=== PATIENT | female | born 1945 | race Caucasian/White ===

== ENCOUNTER → 2017-04-22 | Outpatient (CLI) | payer MEDICARE ==
[~2017-04-22] MED LIST: Bactrim Ds Tab1 EACH PO; DILT30 PO; ESOM20 PO; MULVITMIND PO; Prilosec Otc20 MG
== END | disposition home or self-care (01) ==
LOC: LAB EV 09:37
DX: N30.01 Acute cystitis with hematuria (principal)
CPT/HCPCS: 87086

== ENCOUNTER → 2017-04-30 | Outpatient (CLI) | payer MEDICARE | END | disposition home or self-care (01) | LOC: LAB EV 10:32 | DX: N39.0 Urinary tract infection, site not specified (principal) | CPT/HCPCS: 87077; 87086; 87186 ==

== ENCOUNTER → 2017-11-01 | Outpatient (CLI) | payer BC, MEDICARE | LOC: LAB SHORT 12:10 → LAB EV 12:10 | DX: N39.0 Urinary tract infection, site not specified (principal) | CPT/HCPCS: 87077; 87086; 87186 ==

== ENCOUNTER 2018-07-31 11:57 | Emergency (ER) | payer BC, MEDICARE ==
[~2018-07-31] VITALS: Ht 167.6 cm; Wt 77.1 kg
[2018-07-31 13:34] LABS: BASOPHILS ABSOLUTE AUTO 0.02 K/mm3 (0.00-0.23); BASOPHILS PERCENT AUTO 0 % (0-2); EOSINOPHILS ABSOLUTE AUTO 0.44 K/mm3 (0.00-0.68); EOSINOPHILS PERCENT AUTO 3 % (0-6); Hematocrit 44.5 % (33.0-51.0); Hemoglobin 14.6 g/dL (11.5-16.0); IMMATURE GRAN ABSOLUTE AUTO 0.09 K/mm3 (0.00-0.10); IMMATURE GRAN PERCENT AUTO 1 % (0-1); LYMPHOCYTES ABSOLUTE AUTO 1.63 K/mm3 (0.84-5.20); LYMPHOCYTES PERCENT AUTO 13 % (21-46); MONOCYTES ABSOLUTE AUTO 0.73 K/mm3 (0.16-1.47); MONOCYTES PERCENT AUTO 6 % (4-13); Mean Corpuscular HGB 29.1 pg (26.0-34.0); Mean Corpuscular HGB Conc 32.8 g/dL (31.5-36.5); Mean Corpuscular Volume 89 fL (80-100); Mean Platelet Volume 9.8 fL (9.1-12.4); NEUTROPHILS ABSOLUTE AUTO 10.01 K/mm3 (1.96-9.15); NEUTROPHILS PERCENT AUTO 77 % (41-73); Platelet Count 241 K/mm3 (150-400); RDW Coefficient Variation 12.7 % (11.7-14.2); RDW Standard Deviation 41.5 fL (35.1-46.3); Red Blood Cell Count 5.01 M/mm3 (3.80-5.20); White Blood Cell Count 12.92 K/mm3 (4.00-11.30)
[2018-07-31 13:39] LABS: Alanine Aminotransfer (ALT/SGP 31 U/L (12-78); Albumin, Blood 3.6 g/dL (3.4-5.0); Albumin/Globulin Ratio 1.1 (0.8-1.8); Alk Phos 96 U/L (50-136); Anion Gap 7 mmol/L (6-16); Aspartate Aminotrans (AST/SGOT 19 U/L (12-37); Bilirubin, Total 0.6 mg/dL (0.1-1.0); Blood Urea Nitrogen 19 mg/dL (8-24); Bun/Creatinine Ratio 15.3 (12.0-20.0); CO2, Blood 27 mmol/L (21-32); Calcium, Blood 9.5 mg/dL (8.5-10.1); Chloride, Blood 109 mmol/L (98-108); Creatinine, Blood 1.24 mg/dL (0.40-1.00); Globulin, Blood 3.2 g/dL (2.2-4.0); Glomerular Filtration Rate 45 (60-); Glucose, Blood 106 mg/dL (70-99); Potassium, Blood 4.2 mmol/L (3.5-5.5); Sodium, Blood 143 mmol/L (136-145); Total Protein, Blood 6.8 g/dL (6.4-8.2); Troponin I <0.015 ng/mL (0.000-0.040)
== END 2018-07-31 17:23 | disposition home or self-care (01) ==
LOC: ER 11:57
PROVIDERS: Emergency Medicine
DX: E86.0 Dehydration (principal); R55 Syncope and collapse; Z88.1 Allergy status to other antibiotic agents; Z79.899 Other long term (current) drug therapy; K21.9 Gastro-esophageal reflux disease without esophagitis; I10 Essential (primary) hypertension; Z87.891 Personal history of nicotine dependence
CPT/HCPCS: 36415; 71046; 80053; 83880; 84484; 85025; 93005; 93010; 96360; 99284-25; J7120

== ENCOUNTER → 2018-08-08 | Outpatient (CLI) | payer BC, MEDICARE ==
[2018-08-08 13:46] LABS: BASOPHILS ABSOLUTE AUTO 0.03 K/mm3 (0.00-0.23); BASOPHILS PERCENT AUTO 0 % (0-2); EOSINOPHILS ABSOLUTE AUTO 0.74 K/mm3 (0.00-0.68); EOSINOPHILS PERCENT AUTO 7 % (0-6); Hematocrit 43.6 % (33.0-51.0); IMMATURE GRAN ABSOLUTE AUTO 0.05 K/mm3 (0.00-0.10); IMMATURE GRAN PERCENT AUTO 1 % (0-1); LYMPHOCYTES ABSOLUTE AUTO 2.63 K/mm3 (0.84-5.20); LYMPHOCYTES PERCENT AUTO 24 % (21-46); MONOCYTES ABSOLUTE AUTO 0.61 K/mm3 (0.16-1.47); MONOCYTES PERCENT AUTO 6 % (4-13); Mean Corpuscular HGB 29.5 pg (26.0-34.0); Mean Corpuscular HGB Conc 34.4 g/dL (31.5-36.5); Mean Platelet Volume 9.8 fL (9.1-12.4); NEUTROPHILS ABSOLUTE AUTO 7.04 K/mm3 (1.96-9.15); NEUTROPHILS PERCENT AUTO 63 % (41-73); Platelet Count 246 K/mm3 (150-400); RDW Coefficient Variation 12.7 % (11.7-14.2); RDW Standard Deviation 39.8 fL (35.1-46.3); Red Blood Cell Count 5.09 M/mm3 (3.80-5.20)
[2018-08-08 13:49] LABS: Mean Corpuscular Volume 86 fL (80-100)
[2018-08-08 14:02] LABS: Alanine Aminotransfer (ALT/SGP 26 U/L (12-78); Albumin, Blood 3.8 g/dL (3.4-5.0); Albumin/Globulin Ratio 1.2 (0.8-1.8); Alk Phos 100 U/L (40-126); Anion Gap 7 mmol/L (6-16); Aspartate Aminotrans (AST/SGOT 17 U/L (12-37); Bilirubin, Total 0.6 mg/dL (0.1-1.0); Blood Urea Nitrogen 14 mg/dL (8-24); CO2, Blood 29 mmol/L (21-32); Calcium, Blood 9.8 mg/dL (8.5-10.1); Chloride, Blood 106 mmol/L (98-108); Globulin, Blood 3.3 g/dL (2.2-4.0); Glomerular Filtration Rate 37 (60-); Glucose, Blood 94 mg/dL (70-99); Potassium, Blood 4.1 mmol/L (3.5-5.5); Sodium, Blood 142 mmol/L (136-145); Total Protein, Blood 7.1 g/dL (6.4-8.2)
[2018-08-08 14:04] LABS: Troponin I <0.017 ng/mL (0.000-0.040)
== END | disposition home or self-care (01) ==
LOC: LAB SHORT 13:39 → LAB EV 13:39
PROVIDERS: Physician Assistant
DX: M79.601 Pain in right arm (principal); N39.0 Urinary tract infection, site not specified
CPT/HCPCS: 80053; 83690; 84484; 85025; 87077; 87086; 87186

== ENCOUNTER 2021-08-09 22:31 | Inpatient (IN) | payer BC, MEDICARE ==
[~2021-08-09] VITALS: Ht 175.3 cm; Wt 99.8 kg
[~2021-08-09 22:31] MED LIST changes: +Aspir 8181 MG PO; +FAMO10 PO; +MULTIVITAMINS1 EAC3 PO; +ZYRTEC10 M2 PO
[2021-08-09 23:01] LABS: BASOPHILS ABSOLUTE AUTO 0.02 K/mm3 (0.00-0.23); BASOPHILS PERCENT AUTO 0 % (0-2); EOSINOPHILS ABSOLUTE AUTO 0.04 K/mm3 (0.00-0.68); EOSINOPHILS PERCENT AUTO 0 % (0-6); Hematocrit 42.5 % (33.0-51.0); Hemoglobin 14.8 g/dL (11.5-16.0); IMMATURE GRAN ABSOLUTE AUTO 0.05 K/mm3 (0.00-0.10); IMMATURE GRAN PERCENT AUTO 0 % (0-1); LYMPHOCYTES ABSOLUTE AUTO 1.76 K/mm3 (0.84-5.20); LYMPHOCYTES PERCENT AUTO 10 % (21-46); MONOCYTES ABSOLUTE AUTO 0.95 K/mm3 (0.16-1.47); MONOCYTES PERCENT AUTO 5 % (4-13); Mean Corpuscular HGB 30.1 pg (26.0-34.0); Mean Corpuscular HGB Conc 34.8 g/dL (31.5-36.5); Mean Corpuscular Volume 87 fL (80-100); Mean Platelet Volume 9.6 fL (9.1-12.4); NEUTROPHILS PERCENT AUTO 84 % (41-73); Platelet Count 259 K/mm3 (150-400); RDW Standard Deviation 38.4 fL (35.1-46.3); Red Blood Cell Count 4.91 M/mm3 (3.80-5.20); White Blood Cell Count 17.62 K/mm3 (4.00-11.30)
[2021-08-09 23:20] LABS: Albumin, Blood 3.7 g/dL (3.4-5.0); Albumin/Globulin Ratio 1.1 (0.8-1.8); Bun/Creatinine Ratio 14.2 (12.0-20.0); Calcium, Blood 9.6 mg/dL (8.5-10.1); Creatinine, Blood 1.13 mg/dL (0.40-1.00); Globulin, Blood 3.5 g/dL (2.2-4.0); Potassium, Blood 4.5 mmol/L (3.5-5.5); Total Protein, Blood 7.2 g/dL (6.4-8.2)
[2021-08-10 00:57] LABS: Source, Urine Clean Catch
[2021-08-10 01:02] LABS: Bilirubin, Urine Neg (Neg); Blood, Urine Neg (Neg); Glucose Qualitative, Urine Neg (Neg); Ketones, Urine Neg (Neg); Leukocyte Esterase, Urine Neg (Neg); Nitrite, Urine Neg (Neg); Protein, Urine Neg (Neg); Urobilinogen, Urine NORM (Normal)
[2021-08-10 01:04] LABS: Appearance, Urine Clear (Clear); Color, Urine Yellow (P-Yellow)
--- NOTE | 2021-08-10 05:21 | NUR ---
PATIENT RECEIVED FROM ED IN STABLE CONDITION. SKIN INSPECTION REVEALS NO ACUTE SKIN ISSUES. pATIENT ABLE TO AMBULATE FROM THE STRETCHER TO THE BED INDEPENDENTLY. PATIENT UNDERSTANDS CLEAR LIQUID DIET. MINIMAL C/O LLQ PAIN, NO NAUSEA AT THIS TIME.
[2021-08-10 08:42] LABS: BASOPHILS ABSOLUTE AUTO 0.03 K/mm3 (0.00-0.23); BASOPHILS PERCENT AUTO 0 % (0-2); EOSINOPHILS ABSOLUTE AUTO 0.01 K/mm3 (0.00-0.68); EOSINOPHILS PERCENT AUTO 0 % (0-6); Hematocrit 42.9 % (33.0-51.0); Hemoglobin 14.3 g/dL (11.5-16.0); IMMATURE GRAN ABSOLUTE AUTO 0.09 K/mm3 (0.00-0.10); IMMATURE GRAN PERCENT AUTO 1 % (0-1); LYMPHOCYTES ABSOLUTE AUTO 1.83 K/mm3 (0.84-5.20); LYMPHOCYTES PERCENT AUTO 11 % (21-46); MONOCYTES ABSOLUTE AUTO 1.53 K/mm3 (0.16-1.47); MONOCYTES PERCENT AUTO 9 % (4-13); Mean Corpuscular HGB 29.9 pg (26.0-34.0); Mean Corpuscular HGB Conc 33.3 g/dL (31.5-36.5); Mean Corpuscular Volume 90 fL (80-100); Mean Platelet Volume 9.8 fL (9.1-12.4); NEUTROPHILS ABSOLUTE AUTO 13.76 K/mm3 (1.96-9.15); NEUTROPHILS PERCENT AUTO 80 % (41-73); Platelet Count 232 K/mm3 (150-400); RDW Standard Deviation 39.4 fL (35.1-46.3); Red Blood Cell Count 4.79 M/mm3 (3.80-5.20); White Blood Cell Count 17.25 K/mm3 (4.00-11.30)
[2021-08-10 08:55] LABS: Albumin/Globulin Ratio 0.9 (0.8-1.8); Bilirubin, Total 1.8 mg/dL (0.1-1.0); Bun/Creatinine Ratio 13.5 (12.0-20.0); Calcium, Blood 8.6 mg/dL (8.5-10.1); Creatinine, Blood 1.11 mg/dL (0.40-1.00); Globulin, Blood 3.4 g/dL (2.2-4.0); Potassium, Blood 3.9 mmol/L (3.5-5.5); Total Protein, Blood 6.4 g/dL (6.4-8.2)
--- NOTE | 2021-08-10 19:56 | NUR ---
SHIFT SUMMARY- PT ALERT AND ORIENTED, INDEPENDENT IN THE ROOM. IV IS POSITIONAL. PT HAS SLEPT FREQUENTLY T/O THE SHIFT. PT STATES SHE HAS SOME DISCOMFOT IN HER ABDOMEN, BUT DOES NOT REQUEST PAIN MEDICATION. BEDSIDE REPORT COMPLETED WITH NIGHT RN PT IN BED, CALL LIGHT IN REACH NO S&S OF DISTRESS NOTED.
--- NOTE | 2021-08-11 04:27 | NUR ---
SHIFT SUMMARY: PATIENT REMAINS A/OX4, ADLIB IN ROOM. SLIGHT INCREASED SHORTNESS OF BREATH AND LETHARGY POST MOBILIZATION IN ROOM. NO COMPLAINTS OF SIGNIFICANT PAIN, SLIGHT GI DISCOMFORT AND TENDERNESS TO THE TOUCH- PATIENT DECLINES PAIN MEDICATION INTERVENTIONS DUE TO BEING TOLERABLE. PATIENT REPORTS FEELING SIGNIFICANTLY BETTER COMPARED TO WHEN FIRST BEING ADMITTED.
[2021-08-11 05:39] LABS: Hematocrit 42.2 % (33.0-51.0); Mean Corpuscular HGB 29.8 pg (26.0-34.0); Mean Corpuscular HGB Conc 33.2 g/dL (31.5-36.5); Mean Corpuscular Volume 90 fL (80-100); Mean Platelet Volume 9.9 fL (9.1-12.4); Platelet Count 200 K/mm3 (150-400); RDW Standard Deviation 39.3 fL (35.1-46.3); White Blood Cell Count 17.82 K/mm3 (4.00-11.30)
[2021-08-11 05:58] LABS: Calcium, Blood 8.8 mg/dL (8.5-10.1); Creatinine, Blood 1.08 mg/dL (0.40-1.00); Potassium, Blood 3.5 mmol/L (3.5-5.5)
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
--- NOTE | 2021-08-11 20:04 | NUR ---
SHIFT SUMMARY- PT ALERT, ORIENTED AND INDEPEDENT IN THE ROOM. PT CURRENTLY INFUSING IV ABX THEN IV WILL BE SL. PT HAS HAD NO ACUTE CHANGES T/O THE SHIFT. BEDSIDE REPORT COMPLETED WITH NIGHT RN. PT HAS HAD SEVERAL BM'S AND STATES SHE IS FEELING MUCH BETTER NOW THAT SHE HAS POOPED. PPT IN BED, CALL LIGHT IN REACH NO S&S OF DISTRESS.
--- NOTE | 2021-08-12 04:04 | NUR ---
PATIENT WITH VSS ON RA OVERNIGHT. 1 EPISODE OF INCONTINENT DIARRHEA OVERNIGHT. ABDOMEN DISTENDED WITH MINIMAL BS. PATIENT C/O SOB WHEN UP MOVING AROUND, FEW EXPIRATORY WHEEZES NOTED. O2 SATS REMAIN STABLE. UP INDEPENDENTLY IN THE ROOM. NO ACUTE EVENTS OVERNIGHT.
[2021-08-12 09:14] LABS: Hematocrit 42.2 % (33.0-51.0); Hemoglobin 14.3 g/dL (11.5-16.0); Mean Corpuscular HGB 29.6 pg (26.0-34.0); Mean Corpuscular HGB Conc 33.9 g/dL (31.5-36.5); Mean Corpuscular Volume 87 fL (80-100); Mean Platelet Volume 9.7 fL (9.1-12.4); Platelet Count 220 K/mm3 (150-400); RDW Coefficient Variation 11.9 % (11.7-14.2); RDW Standard Deviation 38.2 fL (35.1-46.3); Red Blood Cell Count 4.83 M/mm3 (3.80-5.20); White Blood Cell Count 12.33 K/mm3 (4.00-11.30)
[2021-08-12] MEDS ORDERED: MIRALAX17 GM PO (11:16)
[2021-08-12] MEDS ORDERED: VISBIOME 112.51 EACH PO ×2 (11:17→11:54)
[2021-08-12] MEDS ORDERED: MULTIVITAMIN PO (11:54)
[2021-08-12] MEDS ORDERED: AMOCLA875 PO (11:56)
--- NOTE | 2021-08-12 14:58 | NUR ---
[place] PT A&O X4 @ TIME OF D/C. SPOUSE @ BEDSIDE DURING D/C INSTRUCTION. PT VERBALIZED UNDERSTANDING, PROVIDED W/ WRITTEN. PT ESCORTED OUT VIA WC. SPOUSE PROVIDED TRANSPORT. VSS. IV D/KIMBERLY. MEDS FAXED TO [facility]
== END 2021-08-12 14:57 | disposition home or self-care (01) | DRG 392 ==
LOC: ER 22:31 → MEDS 08-10 04:24 → ER 08-10 04:24 → MEDS 08-10 04:24
PROVIDERS: Internal Medicine; Student in an Organized Health Care Education/Training Program; ADMIT Internal Medicine
DX: K57.52 Diverticulitis of both small and large intestine without perforation or abscess without bleeding (principal); K59.00 Constipation, unspecified; K21.9 Gastro-esophageal reflux disease without esophagitis; I12.9 Hypertensive chronic kidney disease with stage 1 through stage 4 chronic kidney disease, or unspecified chronic kidney disease; N18.30 Chronic kidney disease, stage 3 unspecified; Z88.1 Allergy status to other antibiotic agents; Z91.018 Allergy to other foods; Z90.49 Acquired absence of other specified parts of digestive tract; Z98.51 Tubal ligation status; Z98.890 Other specified postprocedural states; Z79.82 Long term (current) use of aspirin; Z79.899 Other long term (current) drug therapy; Z85.820 Personal history of malignant melanoma of skin; Z87.891 Personal history of nicotine dependence
CPT/HCPCS: 36415; 74176; 80048; 80053; 81003; 83690; 84484; 85025; 85027; 93005; 93010; 96372; 96374; 96375; 96376; 99285-25; A9270; G0378; J0696; J1650; J2270; J2405; J2543; J3010; J7030; J7040

== ENCOUNTER → 2022-01-01 | Outpatient (CLI) | payer BC, MEDICARE ==
[~2022-01-01] MED LIST changes: +AMOCLA875 PO; +MIRALAX17 GM PO; +MULTIVITAMIN PO; +VISBIOME 112.51 EACH PO
== END | disposition home or self-care (01) ==
LOC: LAB SHORT 12:05 → PLD 12:05
DX: C44.612 Basal cell carcinoma of skin of right upper limb, including shoulder (principal)
CPT/HCPCS: 88305

== ENCOUNTER 2023-10-27 18:34 | Emergency (ER) | payer BC, MEDICARE ==
[~2023-10-27] VITALS: Ht 175.3 cm; Wt 95.2 kg
[2023-10-27 20:08] LABS: BASOPHILS ABSOLUTE AUTO 0.03 K/mm3 (0.00-0.23); BASOPHILS PERCENT AUTO 0 % (0-2); EOSINOPHILS ABSOLUTE AUTO 0.16 K/mm3 (0.00-0.68); EOSINOPHILS PERCENT AUTO 1 % (0-6); Hematocrit 43.6 % (33.0-51.0); Hemoglobin 14.7 g/dL (11.5-16.0); IMMATURE GRAN ABSOLUTE AUTO 0.03 K/mm3 (0.00-0.10); IMMATURE GRAN PERCENT AUTO 0 % (0-1); LYMPHOCYTES ABSOLUTE AUTO 3.15 K/mm3 (0.84-5.20); LYMPHOCYTES PERCENT AUTO 27 % (21-46); MONOCYTES ABSOLUTE AUTO 0.67 K/mm3 (0.16-1.47); MONOCYTES PERCENT AUTO 6 % (4-13); Mean Corpuscular HGB 29.8 pg (26.0-34.0); Mean Corpuscular HGB Conc 33.7 g/dL (31.5-36.5); Mean Corpuscular Volume 88 fL (80-100); NEUTROPHILS ABSOLUTE AUTO 7.56 K/mm3 (1.96-9.15); NEUTROPHILS PERCENT AUTO 65 % (41-73); Platelet Count 290 K/mm3 (150-400); RDW Coefficient Variation 12.3 % (11.7-14.2); RDW Standard Deviation 40.1 fL (35.1-46.3); Red Blood Cell Count 4.94 M/mm3 (3.80-5.20)
[2023-10-27 20:21] LABS: Albumin/Globulin Ratio 1.2 (0.8-1.8); Bilirubin, Total 0.8 mg/dL (0.1-1.0); Calcium, Blood 9.9 mg/dL (8.5-10.1); Creatinine, Blood 1.1 mg/dL (0.40-1.00); Globulin, Blood 3.3 g/dL (2.2-4.0); Potassium, Blood 3.9 mmol/L (3.5-5.5); Total Protein, Blood 7.3 g/dL (6.4-8.2)
[2023-10-27] MEDS ORDERED: Acetaminophen 500 MG Tab PO ONE (21:00)
[2023-10-27] MEDS ORDERED: Cephalexin Monohydrate 250 MG/5 ML UD BTL PO ONE (21:00)
[2023-10-27] MEDS ORDERED: CEPH500 PO (21:47)
[2023-10-27 22:00] VITALS: BP 138/81
== END 2023-10-27 22:17 | disposition home or self-care (01) ==
LOC: ER 18:34
PROVIDERS: Student in an Organized Health Care Education/Training Program
DX: L03.116 Cellulitis of left lower limb (principal); Z87.891 Personal history of nicotine dependence; Z79.82 Long term (current) use of aspirin; Z79.899 Other long term (current) drug therapy; Z88.1 Allergy status to other antibiotic agents; Z91.018 Allergy to other foods
CPT/HCPCS: 80053; 85025; 99284; A9270

== ENCOUNTER 2024-01-09 04:28 | Day surgery (SDC) | payer BC, MEDICARE ==
[~2024-01-09 04:28] MED LIST changes: +CEPH500 PO
[2024-01-09] MEDS ORDERED: Lidocaine HCl 4% Cream 5 GM ONE (13:12)
== END 2024-01-09 23:29 | disposition home or self-care (01) ==
LOC: WOUND 04:28
DX: I87.312 Chronic venous hypertension (idiopathic) with ulcer of left lower extremity (principal); L97.822 Non-pressure chronic ulcer of other part of left lower leg with fat layer exposed; I10 Essential (primary) hypertension; Z88.1 Allergy status to other antibiotic agents; Z90.49 Acquired absence of other specified parts of digestive tract; Z98.51 Tubal ligation status
CPT/HCPCS: A6213; A9270; G0463

== ENCOUNTER 2024-01-30 10:17 | Day surgery (SDC) | payer BC, MEDICARE ==
[2024-01-30] MEDS ORDERED: Lidocaine HCl 4% Cream 5 GM ONE (12:10)
== END 2024-01-30 23:00 | disposition home or self-care (01) ==
LOC: WOUND 10:17
DX: I87.312 Chronic venous hypertension (idiopathic) with ulcer of left lower extremity (principal); L97.822 Non-pressure chronic ulcer of other part of left lower leg with fat layer exposed; I87.2 Venous insufficiency (chronic) (peripheral); I10 Essential (primary) hypertension
CPT/HCPCS: A6213; A9270

== ENCOUNTER 2024-02-06 01:48 | Day surgery (SDC) | payer BC, MEDICARE ==
[2024-02-06] MEDS ORDERED: Lidocaine HCl 4% Cream 5 GM ONE (12:03)
== END 2024-02-06 23:00 | disposition home or self-care (01) ==
LOC: WOUND 01:48
DX: I87.312 Chronic venous hypertension (idiopathic) with ulcer of left lower extremity (principal); L97.822 Non-pressure chronic ulcer of other part of left lower leg with fat layer exposed; I87.2 Venous insufficiency (chronic) (peripheral); I10 Essential (primary) hypertension
CPT/HCPCS: A6213; A9270

== ENCOUNTER 2024-02-13 05:34 | Day surgery (SDC) | payer BC, MEDICARE ==
[2024-02-13] MEDS ORDERED: Lidocaine HCl 4% Cream 5 GM ONE (12:10)
== END 2024-02-13 23:00 | disposition home or self-care (01) ==
LOC: WOUND 05:34
DX: I87.312 Chronic venous hypertension (idiopathic) with ulcer of left lower extremity (principal); L97.822 Non-pressure chronic ulcer of other part of left lower leg with fat layer exposed; I87.2 Venous insufficiency (chronic) (peripheral); I10 Essential (primary) hypertension
CPT/HCPCS: A6213; A9270

== ENCOUNTER 2024-02-27 04:55 | Day surgery (SDC) | payer BC, MEDICARE ==
[2024-02-27] MEDS ORDERED: Lidocaine HCl 4% Cream 5 GM ONE (12:08)
== END 2024-02-27 23:00 | disposition home or self-care (01) ==
LOC: WOUND 04:55
DX: I87.312 Chronic venous hypertension (idiopathic) with ulcer of left lower extremity (principal); L97.822 Non-pressure chronic ulcer of other part of left lower leg with fat layer exposed; I87.2 Venous insufficiency (chronic) (peripheral); I10 Essential (primary) hypertension
CPT/HCPCS: A6213; A9270; G0463

== ENCOUNTER 2024-03-05 04:41 | Day surgery (SDC) | payer BC, MEDICARE ==
[2024-03-05] MEDS ORDERED: Lidocaine HCl 4% Cream 5 GM ONE (12:14)
== END 2024-03-05 23:00 | disposition home or self-care (01) ==
LOC: WOUND 04:41
DX: I87.312 Chronic venous hypertension (idiopathic) with ulcer of left lower extremity (principal); L97.822 Non-pressure chronic ulcer of other part of left lower leg with fat layer exposed; I87.2 Venous insufficiency (chronic) (peripheral); I10 Essential (primary) hypertension
CPT/HCPCS: A6213; A9270; G0463

== ENCOUNTER 2024-03-12 02:02 | Day surgery (SDC) | payer BC, MEDICARE ==
[2024-03-12] MEDS ORDERED: Lidocaine HCl 4% Cream 5 GM ONE (12:17)
== END 2024-03-12 23:00 | disposition home or self-care (01) ==
LOC: WOUND 02:02
DX: I87.312 Chronic venous hypertension (idiopathic) with ulcer of left lower extremity (principal); L97.822 Non-pressure chronic ulcer of other part of left lower leg with fat layer exposed; I87.2 Venous insufficiency (chronic) (peripheral); I10 Essential (primary) hypertension
CPT/HCPCS: A6213; A9270; G0463

== ENCOUNTER → 2024-03-19 | Day surgery (SDC) | payer BC, MEDICARE ==
[~2024-03-19] MED LIST changes: +Lidocaine HCl 4% Cream 5 GM ONE
== END ==
LOC: WOUND 05:00
DX: I87.312 Chronic venous hypertension (idiopathic) with ulcer of left lower extremity (principal); L97.822 Non-pressure chronic ulcer of other part of left lower leg with fat layer exposed; I87.2 Venous insufficiency (chronic) (peripheral); I10 Essential (primary) hypertension
CPT/HCPCS: A6213; A9270

== ENCOUNTER 2024-03-26 01:39 | Day surgery (SDC) | payer BC, MEDICARE ==
[~2024-03-26 01:39] MED LIST changes: -Lidocaine HCl 4% Cream 5 GM ONE
[2024-03-26] MEDS ORDERED: Lidocaine HCl 4% Cream 5 GM ONE (12:30)
== END 2024-03-26 23:00 | disposition home or self-care (01) ==
LOC: WOUND 01:39
DX: I87.312 Chronic venous hypertension (idiopathic) with ulcer of left lower extremity (principal); L97.822 Non-pressure chronic ulcer of other part of left lower leg with fat layer exposed; I87.2 Venous insufficiency (chronic) (peripheral); I10 Essential (primary) hypertension
CPT/HCPCS: A6213; A9270; G0463

== ENCOUNTER 2024-04-02 04:13 | Day surgery (SDC) | payer BC, MEDICARE | END 2024-04-02 23:00 | disposition home or self-care (01) | LOC: WOUND 04:13 | DX: I87.312 Chronic venous hypertension (idiopathic) with ulcer of left lower extremity (principal); L97.522 Non-pressure chronic ulcer of other part of left foot with fat layer exposed; L97.822 Non-pressure chronic ulcer of other part of left lower leg with fat layer exposed; I87.2 Venous insufficiency (chronic) (peripheral); I10 Essential (primary) hypertension | CPT/HCPCS: A6213; G0463 ==

== ENCOUNTER 2024-04-16 02:30 | Day surgery (SDC) | payer BC, MEDICARE ==
[2024-04-16] MEDS ORDERED: Lidocaine HCl 4% Cream 5 GM ONE (10:09)
== END 2024-04-16 23:00 | disposition home or self-care (01) ==
LOC: WOUND 02:30
DX: I87.312 Chronic venous hypertension (idiopathic) with ulcer of left lower extremity (principal); L97.822 Non-pressure chronic ulcer of other part of left lower leg with fat layer exposed; I87.2 Venous insufficiency (chronic) (peripheral); I10 Essential (primary) hypertension
CPT/HCPCS: A6213; A9270; G0463

== ENCOUNTER 2024-04-23 00:56 | Day surgery (SDC) | payer BC, MEDICARE | END 2024-04-23 23:00 | disposition home or self-care (01) | LOC: WOUND 00:56 | DX: I87.312 Chronic venous hypertension (idiopathic) with ulcer of left lower extremity (principal); L97.829 Non-pressure chronic ulcer of other part of left lower leg with unspecified severity; I87.2 Venous insufficiency (chronic) (peripheral); I10 Essential (primary) hypertension | CPT/HCPCS: G0463 ==